=== PATIENT | female | born 1960 | race Hispanic/Latino ===

== ENCOUNTER → 2025-06-12 | Outpatient (REF) | payer OTHER ==
[~2025-06-12] MED LIST: KEFLEX500 MG PO; KENOLOG TOP; SURFAK240 MG PO; SYNTHROID100 MCG PO; VERAPAMIL ER120 MG PO
== END ==
LOC: RAD 11:50
PROVIDERS: ATTEND Internal Medicine Endocrinology, Diabetes & Metabolism
DX: M54.50 Low back pain, unspecified (principal); M51.369 Other intervertebral disc degeneration, lumbar region without mention of lumbar back pain or lower extremity pain
CPT/HCPCS: 72110